=== PATIENT | female | born 1990 | race African-American/Black ===

== ENCOUNTER 2018-11-22 19:55 | Emergency (ER) | payer OTHER ==
[~2018-11-22] VITALS: Ht 157.5 cm; Wt 83.9 kg
[2018-11-22 20:31] VITALS: BP 118/72
--- NOTE | 2018-11-22 20:37 | Emergency Room Report ---
History of Present Illness General Chief Complaint: Flu Like Symptoms Source: Patient Present Illness HPI 28-year-old female with no significant past medical history here complaining of 2 days of sore throat, rating the pain 10 out of 10, enlarged lymph nodes in her neck, and chills. He also complains of body ache as well as cough and congestion having green mucus. She has not taken any medication for her symptoms patient is a marijuana smoker however denies tobacco smoke. Chest pain , shortness of breath, history of asthma, palpitation, wheezing, abdominal pain nausea vomiting. She also has a 1-year-old baby with similar symptoms. Denies recent travel and sick contacts Allergies: Coded Allergies: No Known Allergies (Unverified , 11/22/18) Patient History Past Medical History: see triage record Past Surgical History: unable to obtain Pertinent Family History: none Social History: Reports: smoking - marijuana Now: No : 1 Para: 0 Immunizations: UTD Reviewed Nursing Documentation: PMH: Agreed; PSxH: Agreed Nursing Documentation-PMH Past Medical History: No Stated History Review of Systems All Other Systems: negative except mentioned in HPI Physical Exam Vital Signs Date Time Temp Pulse Resp B/P (MAP) Pulse Ox O2 Delivery O2 Flow Rate FiO2 11/22/18 20:02 98.2 94 18 118/72 (87) 95 Room Air Sp02 EP Interpretation: reviewed, normal General Appearance: normal inspection, well appearing, no apparent distress, alert Head: normocephalic Eyes: bilateral eye normal inspection, bilateral eye PERRL ENT: no angioedema, normal voice, TMs + canals normal, uvula midline, nasal congestion, tonsillar swelling, pharyngeal erythema Neck: supple, other - Anterior cervical lymphadenopathy Respiratory: normal inspection, chest non-tender, lungs clear, no rhonchi, no wheezing Cardiovascular #1: normal inspection, no edema, no gallop, no murmur, normal capillary refill Gastrointestinal: normal inspection, soft Rectal: deferred Genitourinary: adnexa normal Musculoskeletal: normal inspection, back normal, digits/nails normal Neurologic: normal inspection, alert Psychiatric: normal inspection, judgement/insight normal Skin: normal inspection, normal color, no rash, warm/dry Lymphatic: adenopathy - Anterior cervical Medical Decision Making PA Attestation All my diagnosis and treatment plans were reviewed ad discussed with my supervising physician Dr. Arceo Diagnostic Impression: Primary Impression: Tonsillitis ER Course 28-year-old female with no significant past medical history here complaining of 2 days of sore throat, rating the pain 10 out of 10, enlarged lymph nodes in her neck, and chills. He also complains of body ache as well as cough and congestion having green mucus. She has not taken any medication for her symptoms patient is a marijuana smoker however denies tobacco smoke. Chest pain , shortness of breath, history of asthma, palpitation, wheezing, abdominal pain nausea vomiting. She also has a 1-year-old baby with similar symptoms. Denies recent travel and sick contacts Ddx considered but are not limited to: strep pharyngitis, URI, tonsilitis, peritonsillar absacess, influneza Vital signs: are WNL, pt. is afebrile H&PE are most consistent with: tonsillitis ORDERS: azithromycin, tesselon pearls, flonase ED INTERVENTIONS: None required at this time. DISCHARGE: At this time pt. is stable for d/c to home. Will provide printed patient care instructions, and any necessary prescriptions. Care plan and follow up instructions have been discussed with the patient prior to discharge. Alternate between taking Tylenol and ibuprofen for body ache no stronger pain medication as necessary for body pain secondary to pharyngitis Last Vital Signs Date Time Temp Pulse Resp B/P (MAP) Pulse Ox O2 Delivery O2 Flow Rate FiO2 11/22/18 20:31 98.2 89 18 118/72 95 Room Air Disposition: HOME, SELF-CARE Condition: Stable Scripts Fluticasone Propionate (Flonase Allergy Relief) 9.9 Ml Ru[place].susp 2 PUFFS NS BID, #1 SPRAY Prov: Arnold Gutierrez 11/22/18 Benzonatate* (TESSALON PERLE*) 100 Mg Capsule 100 MG ORAL THREE TIMES A DAY, #20 PERLE Prov: Arnold Gutierrez 11/22/18 Azithromycin* (ZITHROMAX*) 250 Mg Tablet 250 MG ORAL DAILY, #6 TAB 0 Refills Take two tables once daily for 1 day, then one tablet once daily for 4 days. Prov: Arnold Gutierrez 11/22/18 Patient Instructions: Tonsillitis, Hniz-pp-Irve Additional Instructions: Take medication as directed alternate between ibuprofen and Tylenol for body aches see primary care provider for follow-up Arnold Gutierrez Nov 22, 2018 20:37
[2018-11-22] MEDS ORDERED: FLONASE ALLERG9.9 ML NS (20:38)
[2018-11-22] MEDS ORDERED: ZITHROMAX250 MG ORAL (20:38)
[2018-11-22] MEDS ORDERED: TESSALON PERLE100 MG ORAL (20:38)
[2018-11-22 20:54] VITALS: BP 118/72
== END 2018-11-22 21:00 | disposition home or self-care (01) ==
LOC: EMR 20:56
DX: J03.90 Acute tonsillitis, unspecified (principal)
CPT/HCPCS: 99282

== ENCOUNTER 2019-02-12 16:47 | Emergency (ER) | payer OTHER ==
[~2019-02-12] VITALS: Ht 175.3 cm; Wt 79.8 kg
[~2019-02-12 16:47] MED LIST: FLONASE ALLERG9.9 ML NS; TESSALON PERLE100 MG ORAL; ZITHROMAX250 MG ORAL
[2019-02-12] MEDS ORDERED: NKM (17:04)
[2019-02-12 17:15] VITALS: BP 124/80
--- NOTE | 2019-02-12 17:20 | NUR ---
ED Nurse Note: Patient walked into ER from home due to vaginal bleeding. Stated that has vaginal bleeding X 1 month, on and off. AAO x4, VSS at this time, skin is dry warm to touch.
[2019-02-12 18:52] LABS: APPEARANCE,URINE CLEAR; BILIRUBIN, URINE NEGATIVE (NEGATIVE); COLOR,URINE AMBER; GLUCOSE, URINE (UA) NEGATIVE (NEGATIVE); KETONES,URINE NEGATIVE (NEGATIVE); LEUKOCYTE ESTERASE ,URINE 1+ (NEGATIVE); NITRITE,URINE NEGATIVE (NEGATIVE); PH,URINE 8 (4.5-8.0); PROTEIN,URINE 2+ (NEGATIVE); UROBILINOGEN,URINE 4 MG/DL (0.0-1.0)
[2019-02-12 19:16] LABS: BASOPHILS % (AUTO) 1.5 % (0.0-2.0); EOSINOPHILS % (AUTO) 3.3 % (0.0-3.0); HEMATOCRIT 40.1 % (37.0-47.0); HEMOGLOBIN 13.6 G/DL (12.0-16.0); LYMPHOCYTES % (AUTO) 42.2 % (20.0-45.0); MEAN CORPUSCULAR VOLUME 92 FL (80-99); MONOCYTES % (AUTO) 8.9 % (1.0-10.0); NEUTROPHILS % (AUTO) 44.1 % (45.0-75.0); PLATELET COUNT 262 K/UL (150-450); RED BLOOD COUNT 4.38 M/UL (4.20-5.40); RED CELL DISTRIBUTION WIDTH 11.3 % (11.6-14.8); WHITE BLOOD COUNT 5.4 K/UL (4.8-10.8)
--- NOTE | 2019-02-12 19:20 | Emergency Room Report ---
History of Present Illness General Chief Complaint: Female Urogenital Problems Source: Patient (Arnold Gutierrez) Present Illness HPI 28-year-old female with no significant past medical history here complaining of 1 months of nonstop vaginal bleeding and clotting. Patient reports that her periods started beginning of January and prior to that has regular menses. Patient is sexually active however denies . Denies history of ovarian cyst and uterine fibroids. Denies chest pain, shortness of breath, palpitation , dizziness and syncope. Patient reports that she uses 3-4 pads every day. Complains of lower abdominal cramping especially on the left lower quadrants. Complains of urinary frequency for the past week however denies dysuria, hematuria, nausea vomiting, and flank pain. Has not taken medication for symptom relief. Denies smoking tobacco and drug use. (Arnold Gutierrez) Allergies: Coded Allergies: No Known Allergies (Unverified , 02/12/19) Patient History Past Medical History: see triage record Past Surgical History: unable to obtain Pertinent Family History: none Last Menstrual Period: FIRST WEEK OF JAN Now: No Immunizations: UTD Reviewed Nursing Documentation: PMH: Agreed; PSxH: Agreed (Arnold Gutierrez) Nursing Documentation-PMH Past Medical History: No Stated History (Arnold Gutierrez) Review of Systems All Other Systems: negative except mentioned in HPI (Arnold Gutierrez) Physical Exam Vital Signs Date Time Temp Pulse Resp B/P (MAP) Pulse Ox O2 Delivery O2 Flow Rate FiO2 02/12/19 17:00 99.1 78 16 124/80 (95) 97 Room Air Sp02 EP Interpretation: reviewed, normal General Appearance: no apparent distress, alert, GCS 15, non-toxic Head: normocephalic, atraumatic Eyes: bilateral eye normal inspection, bilateral eye PERRL ENT: hearing grossly normal, normal pharynx, no angioedema, normal voice Neck: full range of motion, supple/symm/no masses Respiratory: chest non-tender, lungs clear, normal breath sounds, no rhonchi, no wheezing, speaking full sentences Cardiovascular #1: normal inspection, regular rate, rhythm, no murmur, no rub, normal capillary refill Gastrointestinal: normal bowel sounds, non tender, soft, no mass, no organomegaly, no peritonitis, no bruit, no guarding, no hernia, no pulsatile mass, no rebound, other - Negative McBurney's and Rovsing sign Rectal: deferred Genitourinary: no CVA tenderness Musculoskeletal: normal inspection, back normal, digits/nails normal Neurologic: alert, oriented x3, responsive, motor strength/tone normal, sensory intact, speech normal Psychiatric: judgement/insight normal, memory normal, mood/affect normal, no suicidal/homicidal ideation Skin: no rash Lymphatic: normal inspection, no adenopathy (Arnold Gutierrez) Medical Decision Making PA Attestation All diagnoses and treatment plans were reviewed and discussed with my supervising physician Dr. Garner (Arnold Gutierrez) Diagnostic Impression: Primary Impression: Irregular uterine bleeding ER Course 28-year-old female with no significant past medical history here complaining of 1 months of nonstop vaginal bleeding and clotting. Patient reports that her periods started beginning of January and prior to that has regular menses. Patient is sexually active however denies . Denies history of ovarian cyst and uterine fibroids. Denies chest pain, shortness of breath, palpitation , dizziness and syncope. Patient reports that she uses 3-4 pads every day. Complains of lower abdominal cramping especially on the left lower quadrants. Complains of urinary frequency for the past week however denies dysuria, hematuria, nausea vomiting, and flank pain. Has not taken medication for symptom relief. Denies smoking tobacco and drug use. Ddx considered but are not limited to: UTI, ovarian cyst, uterine fibroids, irregular uterine bleeding, intrauterine Vital signs: are WNL, pt. is afebrile H&PE are most consistent with: Irregular uterine bleeding ORDERS: UA, urine , CBC, CMP, pelvic ultrasound, ibuprofen ED INTERVENTIONS: NS bolus, Zofran DISCHARGE: At this time pt. is stable for d/c to home. Will provide printed patient care instructions, and any necessary prescriptions. Care plan and follow up instructions have been discussed with the patient prior to discharge. Patient to follow-up with umbrella cutter for further assessment and specific female hormone testing at this time no further emergent imaging or labs needed as patient vitals are stable and patient is not anemic. (Arnold Gutierrez) Laboratory Tests Test 02/12/19 18:30 White Blood Count 5.4 K/UL (4.8-10.8) Red Blood Count 4.38 M/UL (4.20-5.40) Hemoglobin 13.6 G/DL (12.0-16.0) Hematocrit 40.1 % (37.0-47.0) Mean Corpuscular Volume 92 FL (80-99) Mean Corpuscular Hemoglobin 31.0 PG (27.0-31.0) Mean Corpuscular Hemoglobin Concent 33.9 G/DL (32.0-36.0) Red Cell Distribution Width 11.3 % (11.6-14.8) L Platelet Count 262 K/UL (150-450) Mean Platelet Volume 8.6 FL (6.5-10.1) Neutrophils (%) (Auto) 44.1 % (45.0-75.0) L Lymphocytes (%) (Auto) 42.2 % (20.0-45.0) Monocytes (%) (Auto) 8.9 % (1.0-10.0) Eosinophils (%) (Auto) 3.3 % (0.0-3.0) H Basophils (%) (Auto) 1.5 % (0.0-2.0) Urine Color [place] Urine Appearance Clear Urine pH 8 (4.5-8.0) Urine Specific [place] 1.010 (1.005-1.035) Urine Protein 2+ (NEGATIVE) H Urine Glucose (UA) Negative (NEGATIVE) Urine Ketones Negative (NEGATIVE) Urine Blood 4+ (NEGATIVE) H Urine Nitrite Negative (NEGATIVE) Urine Bilirubin Negative (NEGATIVE) Urine Ictotest Negative (NEGATIVE) Urine Urobilinogen 4 MG/DL (0.0-1.0) H Urine Leukocyte Esterase 1+ (NEGATIVE) H Urine RBC 5-10 /HPF (0 - 2) H Urine WBC 2-4 /HPF (0 - 2) Urine Squamous Epithelial Cells Few /LPF (NONE/OCC) Urine Bacteria Few /HPF (NONE) Urine HCG, Qualitative Negative (NEGATIVE) Sodium Level 145 MMOL/L (136-145) Potassium Level 4.1 MMOL/L (3.5-5.1) Chloride Level 110 MMOL/L (98-107) H Carbon Dioxide Level 24 MMOL/L (21-32) Anion Gap 11 mmol/L (5-15) Blood Urea Nitrogen 6 mg/dL (7-18) L Creatinine 0.9 MG/DL (0.55-1.30) Estimate Glomerular Filtration Rate > 60 mL/min (>60) Glucose Level 98 MG/DL (74-106) Calcium Level 9.3 MG/DL (8.5-10.1) Total Bilirubin 0.5 MG/DL (0.2-1.0) Aspartate Amino Transferase (AST) 19 U/L (15-37) Alanine Aminotransferase (ALT) 26 U/L (12-78) Alkaline Phosphatase 57 U/L (46-116) Total Protein 7.3 G/DL (6.4-8.2) Albumin 3.8 G/DL (3.4-5.0) Globulin 3.5 g/dL Albumin/Globulin Ratio 1.1 (1.0-2.7) (Rafal Garner MD) CT/MRI/US Diagnostic Results CT/MRI/US Diagnostic Results : Imaging Test Ordered: pelvic US Impression WNL. no fibroids. small cyst (Arnold Gutierrez) Last Vital Signs Date Time Temp Pulse Resp B/P (MAP) Pulse Ox O2 Delivery O2 Flow Rate FiO2 02/12/19 17:15 99.1 16 124/80 97 Room Air 02/12/19 17:00 78 (Arnold Gutierrez) Disposition: HOME, SELF-CARE Condition: Stable Scripts Ibuprofen* (MOTRIN*) 600 Mg Tablet 600 MG ORAL Q6H PRN for For Pain, #30 TAB Prov: Arnold Gutierrez 02/12/19 Patient Instructions: Abnormal Uterine Bleeding, [id number] Additional Instructions: Patient to follow-up with umbrella cutter for further assessment and specific female hormone testing at this time no further emergent imaging or labs needed as patient vitals are stable and patient is not anemic. Arnold Gutierrez Feb 12, 2019 19:20 Rafal Garner MD Feb 13, 2019 06:52
[2019-02-12 19:22] LABS: ANION GAP 11 mmol/L (5-15); BLOOD UREA NITROGEN 6 mg/dL (7-18); CALCIUM 9.3 MG/DL (8.5-10.1); CARBON DIOXIDE 24 MMOL/L (21-32); CHLORIDE 110 MMOL/L (98-107); CREATININE 0.9 MG/DL (0.55-1.30); POTASSIUM 4.1 MMOL/L (3.5-5.1); SODIUM 145 MMOL/L (136-145)
[2019-02-12 19:30] LABS: ALANINE AMINOTRANSFERASE 26 U/L (12-78); ALBUMIN 3.8 G/DL (3.4-5.0); ALBUMIN/GLOBULIN RATIO 1.1 (1.0-2.7); ALKALINE PHOSPHATASE 57 U/L (46-116); ASPARTATE AMINO TRANSFERASE 19 U/L (15-37); BILIRUBIN,TOTAL 0.5 MG/DL (0.2-1.0)
[2019-02-12] MEDS ORDERED: IBUPROFEN600 MG ORAL (19:43)
[2019-02-12 20:06] VITALS: BP 124/80
--- NOTE | 2019-02-12 20:07 | NUR ---
ER DISCHARGE NOTE: Patient is cleared to be discharged per ERMD, pt is aox4, on room air, with stable vital signs. pt was given dc and prescription instructions, pt was able to verbalize understanding, pt id band and iv site removed without complications. pt is able to ambulate with steady gait. pt took all belongings.
--- NOTE | 2019-02-13 10:45 | Diagnostic Imaging Report ---
Indication: Pelvic pain, negative test, vaginal bleeding Technique: Transabdominal and transvaginal images of the pelvis. Doppler interrogation of the bilateral ovaries Comparison: none Findings: Uterus measures 7.1 cm length by 3 cm AP. Endometrium measures 11 mm thick. There is a small punctate hyperechoic focus adjacent to the endometrium, doubtful significance. No myometrial abnormality. Small cervical nabothian cyst is incidentally noted. There is trace free cul-de-sac fluid. Right ovary measures 3.3 cm length. The left ovary measures 3 cm length. Both ovaries demonstrate normal flow on Doppler imaging. Impression: Essentially unremarkable exam. Normal ovaries Trace free cul-de-sac fluid, presumably physiologic This agrees with the preliminary interpretation provided overnight by Dr. Franklin
== END 2019-02-12 20:10 | disposition home or self-care (01) ==
LOC: EMR 17:03
DX: N93.9 Abnormal uterine and vaginal bleeding, unspecified (principal)
CPT/HCPCS: 36415; 76830; 76856; 80053; 81001; 81025; 85025; 96361; 96374; 99284; J2405

== ENCOUNTER 2019-09-07 19:36 | Emergency (ER) | payer OTHER ==
[~2019-09-07] VITALS: Ht 175.3 cm; Wt 79.4 kg
[~2019-09-07 19:36] MED LIST changes: +IBUPROFEN600 MG ORAL; +NKM
[2019-09-07 19:56] VITALS: BP 113/63
[2019-09-07] MEDS ORDERED: Bacitracin Oint UD TOPIC ONE (20:15)
[2019-09-07] MEDS ORDERED: Augmentin 875mg Tab ORAL ONE (20:15)
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
[2019-09-07] MEDS ORDERED: AUGMENTIN 875-1 EAC1 ORAL (20:37)
[2019-09-07] MEDS ORDERED: MUPIROCIN22 GM TOPIC (20:37)
[2019-09-07] MEDS ORDERED: MEDERMA20 GM TP (20:37)
[2019-09-07 20:51] VITALS: BP 113/63
== END 2019-09-07 20:51 | disposition home or self-care (01) ==
LOC: EMR 20:18
DX: S01.80XA Unspecified open wound of other part of head, initial encounter (principal); S20.171A Other superficial bite of breast, right breast, initial encounter; Y04.2XXA Assault by strike against or bumped into by another person, initial encounter; Y04.1XXA Assault by human bite, initial encounter; Y93.9 Activity, unspecified; Y92.9 Unspecified place or not applicable
CPT/HCPCS: 12011; Z7502; 99282

== ENCOUNTER 2019-11-15 10:41 | Emergency (ER) | payer OTHER ==
[~2019-11-15] VITALS: Ht 175.3 cm; Wt 77.1 kg
[~2019-11-15 10:41] MED LIST changes: +AUGMENTIN 875-1 EAC1 ORAL; +MEDERMA20 GM TP; +MUPIROCIN22 GM TOPIC
--- NOTE | 2019-11-15 10:58 | Emergency Room Report ---
History of Present Illness General Chief Complaint: Upper Extremity Injury Source: Patient Present Illness HPI Patient is a [id number] 29-year-old female who presents to the ER complaining of left wrist pain for the past 3 weeks. Patient states that she fell and injured her wrist 3 weeks ago. She states that she has wrapped it with an Anthony wrap but continues to have pain. Patient states that she works for [employer]. She denies any other trauma. She states she has not taken any medication for the pain yet. She denies any fever or chills. Allergies: Coded Allergies: No Known Allergies (Unverified , 02/12/19) COVID-19 Screening Contact w/high risk pt: No Recent Travel to affected area: No Experienced COVID-19 symptoms?: No COVID-19 Testing performed MANAGER CODE: No Patient History Last Menstrual Period: 10/20/19 Now: No Reviewed Nursing Documentation: PMH: Agreed; PSxH: Agreed Nursing Documentation-PMH Past Medical History: No Stated History Review of Systems All Other Systems: negative except mentioned in HPI Physical Exam Vital Signs Date Time Temp Pulse Resp B/P (MAP) Pulse Ox O2 Delivery O2 Flow Rate FiO2 11/15/19 10:45 98.1 85 20 100/57 (71) 98 Room Air Sp02 EP Interpretation: reviewed, normal General Appearance: no apparent distress, alert, GCS 15, non-toxic Head: normocephalic, atraumatic Eyes: bilateral eye normal inspection, bilateral eye PERRL ENT: hearing grossly normal, normal pharynx, no angioedema, normal voice Neck: full range of motion, supple/symm/no masses Respiratory: chest non-tender, lungs clear, normal breath sounds, speaking full sentences Cardiovascular #1: regular rate, rhythm, no edema Cardiovascular #2: 2+ radial (R), 2+ radial (L) Gastrointestinal: normal bowel sounds, non tender, soft, non-distended, no guarding, no rebound Rectal: deferred Musculoskeletal: other - Left snuffbox tenderness, normal range of motion, no swelling, cap refill immediate Neurologic: alert, motor strength/tone normal, oriented x3, sensory intact, responsive, speech normal Psychiatric: no suicidal/homicidal ideation Skin: no rash Lymphatic: no adenopathy Procedures Splinting Splinting : Consent: Verbal Location: [facility] Pre-Made Type: velcro - thumbspica Splint: thumb spica Pre-Proc Neuro Vasc Exam: normal Post-Proc Neuro Vasc Exam: normal Patient Tolerated: Well Complications: None Medical Decision Making Diagnostic Impression: Primary Impression: Left wrist sprain ER Course Patient had snuffbox tenderness. X-ray demonstrates no acute fractures. Thumb spica placed. Patient advised to follow-up with orthopedics within the next week. After discussing risks and benefits of further diagnostics, treatment plans, as well as indications for and risks of admission, the patient is agreeable to being discharged home. I have explained that their evaluation and treatment in the emergency department today is an important step towards them achieving better health but that their evaluation today is not intended to replace further evaluation and treatment by a physician in their local clinic. I have explained that while the current findings suggest no immediate life threatening emergency they will require further evaluation and treatment by a physician of their choice in their area. They understand that it will be necessary for them to review the final reports of their ED visit with their clinic physician. We have reviewed indications for return to the Emergency Department. I have explained that additional time may need to pass and/or additional testing as an outpatient may be necessary before a definitive diagnosis can be made. They tell me they are willing to follow up as instructed within the timeframe I recommend. They appear to understand what we discussed. Additionally they understand that if they are unable to be seen by an outpatient physician they are welcome, and in fact should, return to the Emergency Department for a repeat evaluation. The patient is stable at time of discharge. Other X-Ray Diagnostic Results Other X-Ray Diagnostic Results : X-Ray ordered: L wrist # of Views/Limited Vs Complete: 3 View Indication: Pain EP Interpretation: Yes Interpretation: no dislocation, no soft tissue swelling, no fractures Impression: No acute disease Electronically Signed by: Chiquis Smallwood MD Last Vital Signs Date Time Temp Pulse Resp B/P (MAP) Pulse Ox O2 Delivery O2 Flow Rate FiO2 11/15/19 10:45 98.1 85 20 100/57 (71) 98 Room Air Disposition: HOME, SELF-CARE Condition: Stable Scripts Ibuprofen* (MOTRIN*) 600 Mg Tablet 600 MG ORAL Q6H PRN for For Pain, #30 TAB 0 Refills Prov: Chiuqis Smallwood M.D. 11/15/19 Additional Instructions: The patient was provided with discharge instructions, notified to follow-up with a primary care doctor and or specialist in the next 24-48 hours, and to return to the ED if they have worsening of their symptoms. Please note that this report is being documented using [employer] technology. This can lead to erroneous entry secondary to incorrect interpretation by the dictating instrument. Chiquis Smallwood M.D. November 15, 2019 10:58
[2019-11-15 10:59] VITALS: BP 100/57
[2019-11-15] MEDS ORDERED: Ketorolac 30mg Inj IM ONE (11:00)
[2019-11-15] MEDS ORDERED: IBUPROFEN600 M1 ORAL (11:37)
[2019-11-15 12:49] VITALS: BP 120/61
--- NOTE | 2019-11-15 13:00 | Diagnostic Imaging Report ---
EXAM: X-RAY XRAY Wrist Complete L CLINICAL HISTORY: Wrist pain. COMPARISON: None FINDINGS: Total of 3 views of the left wrist were obtained. Alignment is anatomic. There is no fracture, bony lesions or erosions. Joint spaces are unremarkable. Surrounding soft tissue is normal. IMPRESSION: NO FRACTURE.
--- NOTE | 2019-11-15 13:04 | Diagnostic Imaging Report ---
EXAM: X-RAY XRAY Hand Complete L CLINICAL HISTORY: Trauma with hand pain. COMPARISON: None FINDINGS: Total of 3 views of the hand were obtained. Alignment is anatomic. There is no fracture, bony lesions or erosions. Joint spaces are unremarkable. Surrounding soft tissue is normal. IMPRESSION: NO FRACTURE.
== END 2019-11-15 12:20 | disposition home or self-care (01) ==
LOC: EMR 11:06
DX: S63.502A Unspecified sprain of left wrist, initial encounter (principal); W01.0XXA Fall on same level from slipping, tripping and stumbling without subsequent striking against object, initial encounter; Y93.9 Activity, unspecified; Y92.9 Unspecified place or not applicable
CPT/HCPCS: 29125; 73110; 73130; 96372; J1885; Z7502; 99283

== ENCOUNTER 2020-07-15 09:21 | Emergency (ER) | payer OTHER ==
[~2020-07-15] VITALS: Ht 175.3 cm; Wt 74.8 kg
[~2020-07-15 09:21] MED LIST changes: +IBUPROFEN600 M1 ORAL
[2020-07-15 10:00] VITALS: BP 112/72
--- NOTE | 2020-07-15 10:00 | NUR ---
ED Nurse Note: Pt walked in from home c/o vaginal bleeding and irriation since having sex on Tuesday. Pt denies urinary problems or discharge. Respirations even and unlabored on room air. Vitals stable as documented. A+Ox4, speaking in complete sentences.
[2020-07-15] MEDS ORDERED: DOXYCYCLINE MO100 MG ORAL (10:04)
--- NOTE | 2020-07-15 10:09 | Emergency Room Report ---
History of Present Illness General Chief Complaint: Vaginal Present Illness HPI 29-year-old female here with vaginal irritation. Patient says that she has been having occasionally unprotected sex with her new male partner. She says that the male partner had to go to the emergency room yesterday "and they gave him a shot and a pill to treat an STD." Says that she has been having some white vaginal discharge as well as intermittent vaginal bleeding. Says that she has noticed some spotting after she has sexual intercourse. Said that she had her period last week. Denies fevers, chills, chest pain, palpitation, shortness of breath, back pain, abdominal pain, nausea, vomiting, diarrhea, dysuria. 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 COVID-19 Screening: Negative COVID-19 COVID-19 Testing Source: 07/11 Patient History Last Menstrual Period: 07/06 Now: No Review of Systems All Other Systems: negative except mentioned in HPI Physical Exam Vital Signs Date Time Temp Pulse Resp B/P (MAP) Pulse Ox O2 Delivery O2 Flow Rate FiO2 07/15/20 09:50 97.9 81 20 105/67 (80) 95 Room Air Sp02 EP Interpretation: reviewed, normal General Appearance: no apparent distress, alert, non-toxic Head: normocephalic, atraumatic Eyes: bilateral eye normal inspection, bilateral eye PERRL ENT: hearing grossly normal, normal pharynx, no angioedema, normal voice Neck: full range of motion, supple/symm/no masses Respiratory: chest non-tender, lungs clear, normal breath sounds, speaking full sentences Cardiovascular #1: regular rate, rhythm, no edema Cardiovascular #2: 2+ carotid (R), 2+ carotid (L), 2+ radial (R), 2+ radial (L), 2+ dorsalis pedis (R), 2+ dorsalis pedis (L) Gastrointestinal: normal bowel sounds, non tender, soft, non-distended, no guarding, no rebound Rectal: deferred Genitourinary: normal inspection, no CVA tenderness Musculoskeletal: back normal, normal range of motion, gait/station normal, non- tender Neurologic: alert, motor strength/tone normal, oriented x3, sensory intact, responsive, speech normal Psychiatric: judgement/insight normal, memory normal, mood/affect normal, no suicidal/homicidal ideation Lymphatic: no adenopathy Medical Decision Making Diagnostic Impression: Primary Impression: Vaginal discharge Additional Impression: Vaginal bleeding ER Course 29-year-old female here with vaginal discharge and vaginal bleeding. Patient has a male partner with whom she does not use protection. Says that the male partner was treated yesterday for STI. Urine negative. Patient was given 500 mg Rocephin and a prescription for 1 week of doxycycline. Told to return with any worsening symptoms. Discharged in stable condition. Last Vital Signs Date Time Temp Pulse Resp B/P (MAP) Pulse Ox O2 Delivery O2 Flow Rate FiO2 07/15/20 09:50 97.9 81 20 105/67 (80) 95 Room Air Disposition: HOME, SELF-CARE Condition: Stable Scripts Doxycycline Monohydrate* (DOXYCYCLINE MONOHYDRATE*) 100 Mg Capsule 100 MG ORAL Q12H, #14 CAP 0 Refills Prov: Korey Addison M.D. 07/15/20 [facility]errals: [facility] Patient Instructions: Korey Tafoya M.D. Jul 15, 2020 10:09
[2020-07-15 10:15] LABS: BILIRUBIN, URINE NEGATIVE (NEGATIVE); COLOR,URINE PALE YELLOW; GLUCOSE, URINE (UA) NEGATIVE (NEGATIVE); KETONES,URINE NEGATIVE (NEGATIVE); LEUKOCYTE ESTERASE ,URINE 1+ (NEGATIVE); NITRITE,URINE NEGATIVE (NEGATIVE); PH,URINE 7 (4.5-8.0); PROTEIN,URINE NEGATIVE (NEGATIVE); UROBILINOGEN,URINE NORMAL MG/DL (0.0-1.0)
[2020-07-15] MEDS ORDERED: Lidocaine 1% MPF 10mg/ml 5ml INJ ONE (10:15)
[2020-07-15] MEDS ORDERED: cefTRIAXone 500mg Inj IM ONE (10:15)
[2020-07-15 10:22] LABS: APPEARANCE,URINE SLIGHTLY CLOUDY
[2020-07-15 10:30] VITALS: BP 118/68
--- NOTE | 2020-07-15 10:30 | NUR ---
ED Nurse Note: Pt cleared by health care Provider for discharge. DC instructions/prescription were given and explained to pt and verbalized understanding of teachings. All medical devices such as ID band removed. Pt is AAO x4, ambulatory and left with all personal belongings.
== END 2020-07-15 10:30 | disposition home or self-care (01) ==
LOC: EMR 10:04
DX: N89.8 Other specified noninflammatory disorders of vagina (principal); N93.9 Abnormal uterine and vaginal bleeding, unspecified
CPT/HCPCS: 81003; 81025; 87086; 96372; J0696; Z7502; 99283